=== PATIENT | female | born 1975 | race Caucasian/White ===

== ENCOUNTER → 2016-12-29 | Outpatient (CLI) | payer BC | LOC: MC.RAD 10:00 | DX: Z12.31 Encounter for screening mammogram for malignant neoplasm of breast (principal) ==

== ENCOUNTER → 2019-03-09 | Outpatient (CLI) | payer BC | LOC: MC.RAD 10:36 | DX: Z12.31 Encounter for screening mammogram for malignant neoplasm of breast (principal); Z98.82 Breast implant status ==

== ENCOUNTER → 2020-05-09 | Outpatient (CLI) | payer BC | LOC: MC.RAD 09:22 | DX: Z12.31 Encounter for screening mammogram for malignant neoplasm of breast (principal); Z98.82 Breast implant status ==

== ENCOUNTER → 2021-06-18 | Outpatient (CLI) | payer BC | LOC: MC.RAD 09:02 | DX: Z12.31 Encounter for screening mammogram for malignant neoplasm of breast (principal); Z98.82 Breast implant status ==

== ENCOUNTER → 2023-07-05 | Outpatient (CLI) | payer OTHER | LOC: MC.RAD 10:27 | DX: Z12.31 Encounter for screening mammogram for malignant neoplasm of breast (principal) ==